=== PATIENT | male | born 1995 | race African-American/Black ===

== ENCOUNTER 2017-09-23 21:50 | Emergency (ER) | payer SELFPAY ==
[2017-09-23 23:18] LABS: APPEARANCE CLOUDY (CLEAR); BILIRUBIN NEGATIVE (NEGATIVE); COLOR YELLOW (YELLOW); GLUCOSE NEGATIVE (NEGATIVE); KETONE NEGATIVE (NEGATIVE); NITRITE NEGATIVE (NEGATIVE); PROTEIN TRACE mg/dL (NEGATIVE); UROBILINOGEN NORMAL (NORMAL)
[2017-09-23 23:19] LABS: BACTERIA FEW /hpf (NONE SEEN); EPITHELIAL CELLS 0-5 /hpf (0-5); RED CELLS - URINE 0-5 /hpf (0-5)
[2017-09-26 03:09] LABS: CHLAMYDIA TRACHOMATIS, NAA Positive (Negative)
== END 2017-09-24 00:43 | disposition home or self-care (01) ==
LOC: D.ER 21:50
PROVIDERS: Emergency Medicine
DX: A64 Unspecified sexually transmitted disease (principal); N34.2 Other urethritis

== ENCOUNTER 2018-08-21 10:14 | Emergency (ER) | payer SELFPAY ==
[~2018-08-21] VITALS: Ht 167.6 cm; Wt 84.1 kg
[2018-08-21 10:22] VITALS: BP 171/83; Ht 167.6 cm; Wt 84.1 kg
== END 2018-08-21 10:46 ==
LOC: D.ER 10:14
DX: R45.851 Suicidal ideations (principal); F17.200 Nicotine dependence, unspecified, uncomplicated

== ENCOUNTER 2019-07-27 00:11 | Emergency (ER) | payer SELFPAY ==
[~2019-07-27] VITALS: Ht 167.6 cm; Wt 79.5 kg
[2019-07-27 00:15] VITALS: Ht 167.6 cm; Wt 79.5 kg
[2019-07-27] MEDS ORDERED: FLAGYL500 MG PO (00:52)
[2019-07-27 01:02] LABS: APPEARANCE CLEAR (CLEAR); BILIRUBIN NEGATIVE (NEGATIVE); COLOR YELLOW (YELLOW); GLUCOSE NEGATIVE (NEGATIVE); KETONE NEGATIVE (NEGATIVE); NITRITE NEGATIVE (NEGATIVE); PROTEIN NEGATIVE (NEGATIVE); SPECIFIC GRAVITY 1.025 (1.005-1.020); UROBILINOGEN NORMAL (NORMAL)
[2019-07-27 01:04] LABS: BACTERIA FEW /hpf (NEGATIVE); CALCIUM OXALATE CRYSTALS OCC /hpf (NONE SEEN); EPITHELIAL CELLS 0-5 /hpf (0-5); RED CELLS - URINE 0-5 /hpf (0-5); WHITE CELLS - URINE 0-5 /hpf (NEGATIVE)
[2019-07-27 01:30] VITALS: BP 127/85
[2019-07-30 03:07] LABS: CHLAMYDIA TRACHOMATIS, NAA Negative (Negative)
== END 2019-07-27 01:31 | disposition home or self-care (01) ==
LOC: D.ER 00:11
PROVIDERS: Family Medicine
DX: Z20.2 Contact with and (suspected) exposure to infections with a predominantly sexual mode of transmission (principal)